=== PATIENT | male | born 1965 | race Caucasian/White ===

== ENCOUNTER 2019-12-06 12:07 | Emergency (ER) | payer MEDICAID, SELFPAY ==
[2019-12-06 12:07] VITALS: BP 178/110; PULSE 66; RESP 17; TEMP 36.4; O2SAT 98; BMI 31.3
[2019-12-06 13:36] LABS: Red Blood Cells-Urine 0 SEEN /hpf (0-5); Squamous Epithelial Cells - UA 0 SEEN /hpf (0-5)
[2019-12-06 13:38] LABS: Absolute Lymphocyte Count 1.31 X10^3/uL (0.83-4.51); Basophil# 0.05 X10^3/uL; Basophil% 0.6 % (0-1); Eosinophil# 0.13 X10^3/uL; Eosinophils% 1.6 % (0-5); Hematocrit 40.4 % (40-54); Hemoglobin 13.4 g/dL (13.0-16.5); Lymphocyte # 1.31 X10^3/ul (4.0); Lymphocyte % 16.3 % (19-41); Mean Corp Hgb Conc 33.2 g/dL (32-36); Mean Corpuscular Hgb 30.3 pg (27.0-32.0); Mean Corpuscular Volume 91.4 fL (80-94); Mean Platelet Vol. 9.9 fl (6.2-12.0); Monocyte# 0.53 X10^3/uL; Monocyte% 6.6 % (0-10); NRBC Flagged by Analyzer 0 % (0-5); Neutrophil # 5.99 X10^3/uL (2.7-7.7); Neutrophil % 74.5 % (47-70); Platelet Count 210 K/mm3 (150-450); RBC Distribution Width CV 12.8 % (11.6-14.6); RBC Distribution Width SD 42.2 fl (35.1-43.9); Red Blood Count 4.42 M/mm3 (4.6-6.2)
[2019-12-06 13:50] LABS: Anion Gap 6 (5-15); BUN 17 mg/dL (7-18); BUN/Creat Ratio 15.5 RATIO (10-20); Calcium,Total 9.4 mg/dL (8.5-10.1); Chloride 109 mmol/L (98-107); EST Glomerular Filtration Rate 73 mL/min (>60); Est Glom Filt Rate - Afr Amer 89 mL/min (>60); Estimated Creatinine Clearance 70.11 ml/min; Glucose 111 mg/dL (74-106); Potassium 4.1 mmol/L (3.5-5.1); Sodium Level 143 mmol/L (136-145)
[2019-12-06 13:52] LABS: Color, Urine Straw (Yellow); Glucose, Dipstick Normal (Normal); Ketone-Dipstick Negative (Negative); Leukocyte Esterase-Dipstick Negative /ul (Negative); Nitrite-Dipstick Negative (Negative); Occult Blood-Urine Negative /ul (Negative); Protein-Dipstick 15 mg/dl (Negative); Urine Bilirubin Dipstick Negative (Negative); Urine Clarity Clear (Clear); Urine Urobilinogen Normal (Normal)
[2019-12-06] MEDS: Ondansetron 4 MG/2 ML Vial IV (13:56)
[2019-12-06] MEDS: Morphine 4 MG/ML Syringe IV (13:59)
[2019-12-06] MEDS: 0.9% Normal Saline 1,000 ML 1000 ML IV (13:59)
[2019-12-06 14:16] LABS: Bacteria 1+ /hpf (None Seen); Mucous, Urine 1+ /hpf (<or=2+); White Blood Cells 0-5 SEEN /hpf (0-5)
[2019-12-06 14:19] LABS: AST(SGOT) 24 U/L (15-37); Alanine Aminotransfer ALT/SGPT 36 U/L (16-61); Albumin, Serum 4.2 g/dL (3.2-5.0); Alkaline Phosphatase 63 U/L (45-117); Bilirubin, Direct 0.09 mg/dL (0.00-0.30); Globulin 3.7 g/dL (2.2-4.2); Protein, Total 7.9 g/dL (6.4-8.2)
--- NOTE | 2019-12-06 14:20 | ED.VISSUMM ---
- ER Visit Summary Date of Service: 12/06/19 Chief Complaint: Abdominal pain History of Present Illness: The patient is a 54 M who presents with abdominal pain that began yesterday. Patient states the pain is diffuse. Patient describes the pain is cramping. Patient denies any nausea or vomiting. Patient admits to some diarrhea but denies any melena or hematochezia. Patient states he ate some food at a cookout last night. Patient states he tried to eat again this morning and his pain became worse. Patient denies any dysuria or hematuria. Patient denies any fevers or chills. Patient does admit to some mild back pain. Physical Examination: Vital signs are stable. Patient is afebrile. Patient is in no acute distress. Oral mucosa is pink and moist. Neck is supple. Trachea is midline. There is no JVD. Heart was regular rate and rhythm. Lungs are clear and equal bilaterally. Abdomen is soft. Bowel sounds are hypoactive. There is diffuse tenderness. There is no rebound or guarding noted. Cranial nerves II through XII are intact. There are no focal motor or sensory deficits noted. Extremities are intact. There is no calf tenderness or edema. Test Results: CBC, comprehensive metabolic profile, and urinalysis were obtained were all within normal limits. CT scan of the abdomen pelvis was obtained. There are multiple gallstones and fatty infiltration of the liver. There is no acute intra-abdominal pathology noted. This was interpreted by the radiologist and reviewed by myself. Emergency Department Course and Treatment: Patient was given IV fluids, morphine, and Zofran. Patient was given a repeat dose of Dilaudid. Patient is feeling better on reevaluation. Patient was instructed to eat a bland diet. Patient was instructed to avoid greasy foods, fatty foods, and fried foods. Patient was instructed to follow-up with his primary care physician in 5 to 7 days. Patient understood and was agreeable with the plan. All questions were answered. Disposition: Discharge home Impression: 1. Abdominal pain 2. Cholelithiasis This note was generated with [employer] dictation software. It may contain incorrect words, spelling, and punctuation that were not noted in review of the chart prior to signing ED Disposition - Plan for ED Patient: Disposition: Home or Assisted Living Diagnosis: Abdominal pain, Cholelithiasis Instructions: ED Abdominal Pain Gallstone Poss Referrals: Radu Goncalves DIRECTOR BUSINESS DEVELOPMENT, DIRECTOR BUSINESS DEVELOPMENT-C [Primary Care Provider] - 5-7 Days
[2019-12-06] MEDS: HYDROmorphone 0.5 MG/0.5 ML SYRINGE IV (14:31)
--- NOTE | 2019-12-06 15:40 | CT_ITS ---
STUDY: CT ABDOMEN AND PELVIS WITH CONTRAST REASON FOR EXAM: Male, 54 years old. ABDOMINAL PAIN WITH DIARRHEA. HX OF APPENDECTOMY RADIATION DOSAGE (If Supplied By Facility): CTDIvol = ( 16.12 ) mGy, DLP = ( 1145.87 ) mGycm TECHNIQUE: Transaxial images were obtained from the dome of the diaphragm to the symphysis pubis with oral contrast. Oral and amp; IV Gastrografin and amp; 100mL Isovue-300 was administered. Sagittal and coronal images were reconstructed. Individualized dose optimization techniques were used for this CT. COMPARISON: None. FINDINGS: Mild increased markings at the lung bases suggestive of atelectasis. The visualized portions of the heart are within normal limits. There is decreased attenuation of the liver consistent with steatosis. There are multiple gallstones. Normal spleen. Normal pancreas. Normal bilateral adrenal glands. Normal right kidney. Normal left kidney. Normal visualized stomach. Normal small intestine. There are multiple colonic diverticula consistent with diverticulosis. The appendix is visualized and appears normal. There is scattered atherosclerotic calcification of the abdominal aorta, without a demonstrated aneurysm. Normal inferior vena cava. Normal retroperitoneum. Normal urinary bladder. There is a left-sided inguinal hernia containing adipose tissue. 50% loss of height of the L1 vertebrae. CT/Abdomen/Pelvis WITH Contrast IMPRESSION: Multiple gallstones. Fatty infiltration of the liver. Loss of height of the L1 vertebrae. Electronically Signed: Valdez Grubbs, at 16:00 EDT , Service support ,
[2019-12-06 16:08] VITALS: BP 154/102; PULSE 72; RESP 16
[2019-12-06 16:20] VITALS: BP 139/91; PULSE 81; RESP 16; O2SAT 98
== END 2019-12-06 16:21 | disposition home or self-care (01) ==
PROVIDERS: Emergency Provider Emergency Medicine; PCP Nurse Practitioner Family
DX: K80.20 Calculus of gallbladder without cholecystitis without obstruction (principal); F32.9 Major depressive disorder, single episode, unspecified; Z79.899 Other long term (current) drug therapy
CPT/HCPCS: 74177; 80048; 80076; 81001; 85025; 96361; 96374; 96375; 99285; J7030; Q9967; J2405

== ENCOUNTER → 2020-12-19 08:27 | Outpatient (CLI) | payer MEDICAID, SELFPAY ==
[2020-12-19 09:57] LABS: AST(SGOT) 23 U/L (15-37); Alanine Aminotransfer ALT/SGPT 32 U/L (16-61); Alkaline Phosphatase 64 U/L (45-117); Anion Gap 8 (5-15); BUN 26 mg/dL (7-18); BUN/Creat Ratio 20.5 RATIO (10-20); Calcium,Total 8.8 mg/dL (8.5-10.1); Chloride 108 mmol/L (98-107); Cholesterol 222 mg/dL (200); Creatinine, Serum 1.27 mg/dL (0.70-1.30); EST Glomerular Filtration Rate 62 mL/min (>60); Est Glom Filt Rate - Afr Amer 75 mL/min (>60); Globulin 3.9 g/dL (2.2-4.2); Glucose 110 mg/dL (74-106); High Density Lipoprotein 29 mg/dL; PSA,Total - Annual Screen 0.19 ng/mL (0.00-4.00); Protein, Total 7.9 g/dL (6.4-8.2); Sodium Level 141 mmol/L (136-145); Triglycerides 318 mg/dL; Very Low Density Lipoprotein 64 mg/dL (5-40)
== END ==
PROVIDERS: PCP Nurse Practitioner Family; Referring Provider Nurse Practitioner Family; Visit Provider Nurse Practitioner Family
DX: Z00.00 Encounter for general adult medical examination without abnormal findings (principal); Z13.1 Encounter for screening for diabetes mellitus; Z12.5 Encounter for screening for malignant neoplasm of prostate
CPT/HCPCS: 36415; 80053; 80061; 84153; G0103